=== PATIENT | female | born 1965 | race Caucasian/White ===

== ENCOUNTER 2018-07-18 19:23 | Inpatient (IN) | payer OTHER ==
[2018-07-18 20:54] LABS: WHITE BLOOD COUNT 10.7 10^3/ul (4.8-10.8)
[2018-07-18 20:54] LABS: ADD MAN DIFF? NO; BASOPHILS % 0.2 % (0.0-2.0); EOSINOPHILS # 0.1 10^3/ul (0.0-0.5); HEMATOCRIT 27.3 % (37.0-47.0); HEMOGLOBIN 8.7 g/dl (12.0-16.0); LYMPHOCYTES # 1.9 10^3/ul (0.8-2.9); LYMPHOCYTES % 18.1 % (15.0-51.0); MEAN CORPUSCULAR HEMOGLOBIN 27.8 pg (29.0-33.0); MEAN CORPUSCULAR HGB CONC 31.9 g/dl (32.0-37.0); MEAN CORPUSCULAR VOLUME 87.2 fl (82.0-101.0); MEAN PLATELET VOLUME 10.6 fl (7.4-10.4); MONOCYTE # 1.3 10^3/ul (0.3-0.9); MONOCYTES % 11.7 % (0.0-11.0); NEUTROPHIL # 7.3 10^3/ul (1.6-7.5); NEUTROPHILS % 68.6 % (39.0-77.0); PLATELET COUNT 247 10^3/UL (140-415); RED BLOOD COUNT 3.13 10^6/ul (4.20-5.40); RED CELL DISTRIBUTION WIDTH 13.2 % (11.5-14.5)
[2018-07-18 21:00] LABS: ADD UMIC YES; UR ASCORBIC ACID NEGATIVE (NEGATIVE); UR BILIRUBIN (Dip) NEGATIVE (NEGATIVE); UR BLOOD (Dip) NEGATIVE (NEGATIVE); UR CLARITY CLEAR (CLEAR); UR COLOR YELLOW (YELLOW); UR GLUCOSE (Dip) 3+ mg/dL (NEGATIVE); UR KETONES (Dip) NEGATIVE (NEGATIVE); UR LEUKOCYTE ESTERASE (Dip) 2+ Leu/ul (NEGATIVE); UR NITRITE (Dip) NEGATIVE (NEGATIVE); UR RBC 4 /HPF (0-5); UR SPECIFIC GRAVITY (Dip) 1.008 (1.003-1.030); UR TOTAL PROTEIN (Dip) 3+ mg/dl (NEGATIVE); UR UROBILINOGEN (Dip) NEGATIVE (NEGATIVE); UR WBC 67 /HPF (0-5)
[2018-07-18] MEDS: SOD CHLORIDE 0.9% 1,000 ML IV (21:05)
[2018-07-18] MEDS: KETOROLAC 15 MG INJ IV (21:05)
[2018-07-18] MEDS: ONDANSETRON 4 MG INJ IV (21:05)
[2018-07-18 21:07] LABS: ALANINE AMINOTRANSFERASE 21 IU/L (13-69); ALBUMIN 3.4 g/dl (3.3-4.9); ALBUMIN/GLOBULIN RATIO 0.91; ALKALINE PHOSPHATASE 116 IU/L (42-121); ANION GAP 6 (5-13); ASPARTATE AMINO TRANSFERASE 24 IU/L (15-46); BILIRUBIN,INDIRECT 0.5 mg/dl (0-1.1); BILIRUBIN,TOTAL 0.5 mg/dl (0.2-1.3); BLOOD UREA NITROGEN 35 mg/dl (7-20); CALCIUM 8.2 mg/dl (8.4-10.2); CARBON DIOXIDE 22 mmol/L (21-31); CHLORIDE 103 mmol/L (97-110); CREATININE 2.57 mg/dl (0.44-1.00); Estimated GFR 19 mL/min (>60); GLUCOSE 360 mg/dl (70-220); LIPASE 59 U/L (23-300); POTASSIUM 4.7 mmol/L (3.5-5.1); SODIUM 131 mmol/L (135-144); TOTAL PROTEIN 7.1 g/dl (6.1-8.1)
[2018-07-18 21:19] LABS: B-TYPE NATRIURETIC PEPTIDE 5910 PG/ML (0-125); TROPONIN-I 0.015 ng/ml (0.000-0.120)
[2018-07-18] MEDS: CEFTRIAXONE 1 GM/50 ML (PMX) 50 ML IVPB (21:37)
[2018-07-18] MEDS ORDERED: NACL 0.9% 3 ML SYG IV (22:00)
[2018-07-18] MEDS ORDERED: ALBUTEROL/IPRATROPIUM (NEB) 3 ML AMP HHN (22:00)
[2018-07-18] MEDS: GABAPENTIN 300 MG CAP PO (23:42)
[2018-07-18] MEDS: ATORVASTATIN 20 MG TAB PO (23:42)
[2018-07-18] MEDS: HYDROCODONE/APAP (10/325) TAB PO (23:42)
[2018-07-18] MEDS ORDERED: GLUCOSE GEL 15 GRAM TUBE BUCCAL (23:45)
[2018-07-18] MEDS ORDERED: GLUCAGON 1 MG INJ IM (23:45)
[2018-07-18] MEDS ORDERED: DEXTROSE 50% 50 ML SYRINGE IV ×2 (23:45)
[2018-07-18] MEDS ORDERED: GLUCOSE GEL 15 GRAM TUBE PO ×2 (23:45)
[2018-07-19] MEDS: AZITHROMYCIN 500MG/NS (PMX) 250 ML IVPB (00:57)
[2018-07-19] MEDS: INSULIN GLARGINE [LANtus] 3 ML PEN SC ×3 (00:57→21:00)
[2018-07-19] MEDS: ACCU-CHEK XX (02:00)
[2018-07-19] MEDS: ONDANSETRON 4 MG INJ IV ×2 (04:36→12:49)
[2018-07-19 06:52] LABS: ADD MAN DIFF? NO
[2018-07-19 07:00] LABS: WHITE BLOOD COUNT 7.4 10^3/ul (4.8-10.8)
[2018-07-19 07:00] LABS: BASOPHILS % 0.4 % (0.0-2.0); EOSINOPHILS # 0.1 10^3/ul (0.0-0.5); EOSINOPHILS % 1.4 % (0.0-7.0); HEMATOCRIT 22.6 % (37.0-47.0); HEMOGLOBIN 7.1 g/dl (12.0-16.0); LYMPHOCYTES # 1.4 10^3/ul (0.8-2.9); LYMPHOCYTES % 18.3 % (15.0-51.0); MEAN CORPUSCULAR HEMOGLOBIN 27.4 pg (29.0-33.0); MEAN CORPUSCULAR HGB CONC 31.4 g/dl (32.0-37.0); MEAN CORPUSCULAR VOLUME 87.3 fl (82.0-101.0); MEAN PLATELET VOLUME 10.6 fl (7.4-10.4); MONOCYTE # 0.8 10^3/ul (0.3-0.9); MONOCYTES % 11.1 % (0.0-11.0); NEUTROPHILS % 68.3 % (39.0-77.0); PLATELET COUNT 204 10^3/UL (140-415); RED BLOOD COUNT 2.59 10^6/ul (4.20-5.40); RED CELL DISTRIBUTION WIDTH 13.2 % (11.5-14.5)
[2018-07-19 07:18] LABS: HEMOGLOBIN A1C 8.2 % (0-5.9)
[2018-07-19 07:23] LABS: ALANINE AMINOTRANSFERASE 22 IU/L (13-69); ALBUMIN 2.5 g/dl (3.3-4.9); ALBUMIN/GLOBULIN RATIO 0.78; ALKALINE PHOSPHATASE 78 IU/L (42-121); ANION GAP 2 (5-13); ASPARTATE AMINO TRANSFERASE 17 IU/L (15-46); BILIRUBIN,INDIRECT 0.3 mg/dl (0-1.1); BILIRUBIN,TOTAL 0.3 mg/dl (0.2-1.3); BLOOD UREA NITROGEN 36 mg/dl (7-20); CALCIUM 7.6 mg/dl (8.4-10.2); CARBON DIOXIDE 22 mmol/L (21-31); CHLORIDE 108 mmol/L (97-110); CHOL/HDL RATIO 2.8 RATIO; CHOLESTEROL 102 mg/dl (100-200); CREATININE 2.53 mg/dl (0.44-1.00); Estimated GFR 20 mL/min (>60); GLUCOSE 218 mg/dl (70-220); HDL CHOLESTEROL 36 mg/dl (37-92); LDL CHOLESTEROL,CALCULATED 47 mg/dl; MAGNESIUM 2.1 mg/dl (1.7-2.5); POTASSIUM 4.9 mmol/L (3.5-5.1); SODIUM 132 mmol/L (135-144); TOTAL PROTEIN 5.7 g/dl (6.1-8.1); TRIGLYCERIDES 95 mg/dl (0-149)
[2018-07-19] MEDS: SENNA TAB PO (08:31)
[2018-07-19] MEDS: INSULIN ASPART [NOVOLOG] 3 ML PEN SC ×6 (08:37→21:11)
[2018-07-19] MEDS: HEPARIN 5,000 UNIT/1 ML VIAL SC (08:50)
[2018-07-19 08:58] LABS: IRON < 10 ug/dl (35-150)
[2018-07-19 09:02] LABS: TOTAL IRON BINDING CAPACITY 212 ug/dl (241-421)
[2018-07-19] MEDS: HYDROCODONE/APAP (10/325) TAB PO (10:00)
[2018-07-19 10:10] LABS: FERRITIN 45.4 ng/ml (11.1-264.0)
[2018-07-19 14:04] LABS: HEMATOCRIT 23.6 % (37.0-47.0); HEMOGLOBIN 7.6 g/dl (12.0-16.0)
[2018-07-19 16:05] LABS: HAAIG REFLEX REFLEX FILED
[2018-07-19] MEDS: SOD FERRIC GLUC COMPLX 125 MG in SOD CHLORIDE 0.9% 100 ML IVPB (16:13)
[2018-07-19] MEDS: AZITHROMYCIN 250 MG in SOD CHLORIDE 0.9% 250 ML IVPB (16:31)
[2018-07-19] MEDS: METOPROLOL 25 MG TAB PO (16:31)
[2018-07-19] MEDS: ACETAMINOPHEN 325 MG TAB PO (16:31)
[2018-07-19 16:48] LABS: HEPATITIS B SURFACE ANTIGEN NEGATIVE (NEGATIVE)
[2018-07-19 17:06] LABS: HEPATITIS B CORE ANTIBODY NEGATIVE (NEGATIVE); HEPATITIS C VIRAL ANTIBODY REACTIVE (NEGATIVE)
[2018-07-19] MEDS: PANTOPRAZOLE 40 MG INJ IV (17:49)
[2018-07-19] MEDS: METOCLOPRAMIDE 10 MG INJ IV (17:51)
[2018-07-19 18:40] LABS: ADD UMIC YES; UR ASCORBIC ACID NEGATIVE (NEGATIVE); UR BACTERIA FEW /HPF (NONE SEEN); UR BILIRUBIN (Dip) NEGATIVE (NEGATIVE); UR BLOOD (Dip) NEGATIVE (NEGATIVE); UR CLARITY SLIGHTLY CLOUDY (CLEAR); UR COLOR YELLOW (YELLOW); UR GLUCOSE (Dip) 1+ mg/dL (NEGATIVE); UR KETONES (Dip) NEGATIVE (NEGATIVE); UR LEUKOCYTE ESTERASE (Dip) 3+ Leu/ul (NEGATIVE); UR NITRITE (Dip) NEGATIVE (NEGATIVE); UR RBC 1 /HPF (0-5); UR SPECIFIC GRAVITY (Dip) 1.009 (1.003-1.030); UR SQUAMOUS EPITHELIAL CELL MANY /HPF (FEW); UR TOTAL PROTEIN (Dip) 2+ mg/dl (NEGATIVE); UR UROBILINOGEN (Dip) NEGATIVE (NEGATIVE); UR WBC 41 /HPF (0-5)
[2018-07-19 18:50] LABS: POTASSIUM,URINE RANDOM 17.4 mmol/L (25-125)
[2018-07-19 18:50] LABS: SODIUM,URINE RANDOM 21 mmol/L (30-90)
[2018-07-19 18:55] LABS: CREATININE,URINE RANDOM 48.68 mg/dl (20-320)
[2018-07-19 18:55] LABS: SODIUM,URINE RANDOM 21 mmol/L (30-90)
[2018-07-19] MEDS: FERROUS SULFATE (EC) 325 MG TAB PO (20:51)
[2018-07-19] MEDS: ATORVASTATIN 20 MG TAB PO (20:51)
[2018-07-19] MEDS: GABAPENTIN 100 MG CAP PO (20:52)
[2018-07-19] MEDS ORDERED: GABAPENTIN 300 MG CAP PO (21:00)
[2018-07-19] MEDS: ERYTHROMYCIN BASE (DR) 250 MG CAP PO (22:46)
[2018-07-19] MEDS: DOCUSATE SODIUM 100 MG CAP PO (22:46)
[2018-07-19] MEDS: POLYETHYLENE GLYCOL 17 GM PACKET PO (22:46)
[2018-07-19] MEDS: CEFTRIAXONE 1 GM/50 ML (PMX) 50 ML IVPB (22:46)
[2018-07-20] MEDS: METOCLOPRAMIDE 10 MG INJ IV ×3 (00:20→12:26)
[2018-07-20] MEDS: INSULIN GLARGINE [LANTus] (100 UNITS/ML) SYG SC ×2 (00:33→20:54)
[2018-07-20] MEDS: ACCU-CHEK XX (02:00)
[2018-07-20] MEDS: PANTOPRAZOLE 40 MG INJ IV ×2 (05:53→17:36)
[2018-07-20] MEDS: ERYTHROMYCIN BASE (DR) 250 MG CAP PO ×3 (05:53→22:25)
[2018-07-20 06:25] LABS: ADD MAN DIFF? NO
[2018-07-20 06:28] LABS: BASOPHILS % 0.3 % (0.0-2.0); EOSINOPHILS # 0.1 10^3/ul (0.0-0.5); EOSINOPHILS % 1.8 % (0.0-7.0); HEMATOCRIT 22.9 % (37.0-47.0); HEMOGLOBIN 7.3 g/dl (12.0-16.0); LYMPHOCYTES # 1.7 10^3/ul (0.8-2.9); LYMPHOCYTES % 24.1 % (15.0-51.0); MEAN CORPUSCULAR HEMOGLOBIN 27.7 pg (29.0-33.0); MEAN CORPUSCULAR HGB CONC 31.9 g/dl (32.0-37.0); MEAN CORPUSCULAR VOLUME 86.7 fl (82.0-101.0); MEAN PLATELET VOLUME 10.6 fl (7.4-10.4); MONOCYTE # 0.7 10^3/ul (0.3-0.9); MONOCYTES % 9.8 % (0.0-11.0); NEUTROPHIL # 4.6 10^3/ul (1.6-7.5); NEUTROPHILS % 63.7 % (39.0-77.0); PLATELET COUNT 220 10^3/UL (140-415); RED BLOOD COUNT 2.64 10^6/ul (4.20-5.40)
[2018-07-20 06:28] LABS: WHITE BLOOD COUNT 7.2 10^3/ul (4.8-10.8)
[2018-07-20 06:55] LABS: ANION GAP 4 (5-13); BLOOD UREA NITROGEN 33 mg/dl (7-20); CALCIUM 7.8 mg/dl (8.4-10.2); CARBON DIOXIDE 22 mmol/L (21-31); CHLORIDE 109 mmol/L (97-110); CREATININE 2.56 mg/dl (0.44-1.00); Estimated GFR 20 mL/min (>60); GLUCOSE 188 mg/dl (70-220); POTASSIUM 4.3 mmol/L (3.5-5.1); SODIUM 135 mmol/L (135-144)
[2018-07-20 06:56] LABS: MAGNESIUM 2.2 mg/dl (1.7-2.5)
[2018-07-20 06:56] LABS: PHOSPHORUS 4.7 mg/dl (2.5-4.9)
[2018-07-20] MEDS: INSULIN ASPART [NOVOLOG] 3 ML PEN SC ×7 (08:18→20:51)
[2018-07-20] MEDS: DOCUSATE SODIUM 100 MG CAP PO ×2 (08:20→20:50)
[2018-07-20] MEDS: METOPROLOL 25 MG TAB PO (08:20)
[2018-07-20] MEDS: POLYETHYLENE GLYCOL 17 GM PACKET PO (08:20)
[2018-07-20] MEDS: GABAPENTIN 100 MG CAP PO ×3 (08:20→20:50)
[2018-07-20] MEDS: FERROUS SULFATE (EC) 325 MG TAB PO ×2 (08:20→20:50)
[2018-07-20] MEDS: SENNA TAB PO (08:20)
[2018-07-20] MEDS: HYDROCODONE/APAP (10/325) TAB PO (15:48)
[2018-07-20] MEDS: AZITHROMYCIN 250 MG in SOD CHLORIDE 0.9% 250 ML IVPB (17:36)
[2018-07-20] MEDS: ONDANSETRON 4 MG INJ IV (18:50)
[2018-07-20 19:07] LABS: OCCULT BLOOD STOOL NEGATIVE (NEGATIVE)
[2018-07-20] MEDS: ATORVASTATIN 20 MG TAB PO (20:50)
[2018-07-20] MEDS: CEFTRIAXONE 1 GM/50 ML (PMX) 50 ML IVPB (20:51)
[2018-07-21] MEDS: ACCU-CHEK XX (02:00)
[2018-07-21] MEDS: PANTOPRAZOLE 40 MG INJ IV ×2 (05:58→17:36)
[2018-07-21] MEDS: ERYTHROMYCIN BASE (DR) 250 MG CAP PO ×2 (05:58→13:22)
[2018-07-21 06:47] LABS: ADD MAN DIFF? NO
[2018-07-21 06:51] LABS: BASOPHILS % 0.3 % (0.0-2.0); EOSINOPHILS # 0.2 10^3/ul (0.0-0.5); EOSINOPHILS % 2.5 % (0.0-7.0); HEMOGLOBIN 7.4 g/dl (12.0-16.0); MEAN CORPUSCULAR HGB CONC 32.2 g/dl (32.0-37.0); MEAN CORPUSCULAR VOLUME 87.1 fl (82.0-101.0); MONOCYTE # 0.6 10^3/ul (0.3-0.9); MONOCYTES % 7.8 % (0.0-11.0); NEUTROPHIL # 4.4 10^3/ul (1.6-7.5); NEUTROPHILS % 61.1 % (39.0-77.0); PLATELET COUNT 241 10^3/UL (140-415); RED BLOOD COUNT 2.64 10^6/ul (4.20-5.40)
[2018-07-21 06:51] LABS: WHITE BLOOD COUNT 7.2 10^3/ul (4.8-10.8)
[2018-07-21 07:21] LABS: ANION GAP 4 (5-13); BLOOD UREA NITROGEN 33 mg/dl (7-20); CALCIUM 8.1 mg/dl (8.4-10.2); CARBON DIOXIDE 21 mmol/L (21-31); CHLORIDE 112 mmol/L (97-110); CREATININE 2.38 mg/dl (0.44-1.00); Estimated GFR 21 mL/min (>60); GLUCOSE 131 mg/dl (70-220); POTASSIUM 4.3 mmol/L (3.5-5.1); SODIUM 137 mmol/L (135-144)
[2018-07-21] MEDS: INSULIN ASPART [NOVOLOG] 3 ML PEN SC ×7 (07:55→20:57)
[2018-07-21] MEDS: FERROUS SULFATE (EC) 325 MG TAB PO ×2 (08:15→20:54)
[2018-07-21] MEDS: METOPROLOL 25 MG TAB PO (08:15)
[2018-07-21] MEDS: GABAPENTIN 100 MG CAP PO ×3 (08:15→20:54)
[2018-07-21] MEDS: POLYETHYLENE GLYCOL 17 GM PACKET PO (08:16)
[2018-07-21] MEDS: DOCUSATE SODIUM 100 MG CAP PO ×2 (08:16→20:54)
[2018-07-21] MEDS: SENNA TAB PO (08:16)
[2018-07-21 09:56] LABS: HAAIG REFLEX REFLEX FILED
[2018-07-21 11:57] LABS: HEPATITIS B SURFACE ANTIGEN NEGATIVE (NEGATIVE)
[2018-07-21 12:15] LABS: HEPATITIS B CORE ANTIBODY NEGATIVE (NEGATIVE)
[2018-07-21 12:24] LABS: HEPATITIS C VIRAL ANTIBODY REACTIVE (NEGATIVE)
[2018-07-21 13:10] LABS: COMPLEMENT C3 119 mg/dl (88-165); COMPLEMENT C4 35 mg/dl (14-44)
[2018-07-21] MEDS ORDERED: LIDOCAINE 2% (SDV) 5 ML INJ (15:42)
[2018-07-21] MEDS ORDERED: PROPOFOL 40 ML (15:42)
[2018-07-21 16:12] LABS: RHEUMATOID FACTOR NEGATIVE (NEGATIVE)
[2018-07-21 17:31] LABS: CREATININE, RANDOM URINE 50 mg/dL (20-275); MICROALBUMIN 163.1 mg/dL; MICROALBUMIN/CREATININE RATIO 3262 (<30)
[2018-07-21] MEDS: AZITHROMYCIN 250 MG in SOD CHLORIDE 0.9% 250 ML IVPB (17:58)
[2018-07-21] MEDS: ATORVASTATIN 20 MG TAB PO (20:54)
[2018-07-21] MEDS: INSULIN GLARGINE [LANTus] (100 UNITS/ML) SYG SC (20:57)
[2018-07-21] MEDS: hydrALAzine 20 MG INJ IV (22:32)
[2018-07-21] MEDS: HYDROCODONE/APAP (10/325) TAB PO (22:32)
[2018-07-21] MEDS: CEFTRIAXONE 1 GM/50 ML (PMX) 50 ML IVPB (22:42)
[2018-07-22] MEDS: ERYTHROMYCIN BASE (DR) 250 MG CAP PO ×3 (00:30→12:56)
[2018-07-22] MEDS: ACCU-CHEK XX (02:00)
[2018-07-22] MEDS: PANTOPRAZOLE 40 MG INJ IV (05:54)
[2018-07-22 07:16] LABS: ADD MAN DIFF? NO
[2018-07-22 07:17] LABS: WHITE BLOOD COUNT 8.2 10^3/ul (4.8-10.8)
[2018-07-22 07:17] LABS: BASOPHIL # 0.1 10^3/ul (0.0-0.1); BASOPHILS % 0.6 % (0.0-2.0); EOSINOPHILS # 0.2 10^3/ul (0.0-0.5); EOSINOPHILS % 2.8 % (0.0-7.0); HEMATOCRIT 27.2 % (37.0-47.0); HEMOGLOBIN 8.4 g/dl (12.0-16.0); LYMPHOCYTES # 2.1 10^3/ul (0.8-2.9); LYMPHOCYTES % 25.4 % (15.0-51.0); MEAN CORPUSCULAR HGB CONC 30.9 g/dl (32.0-37.0); MEAN CORPUSCULAR VOLUME 87.5 fl (82.0-101.0); MEAN PLATELET VOLUME 11.8 fl (7.4-10.4); MONOCYTE # 0.7 10^3/ul (0.3-0.9); MONOCYTES % 7.9 % (0.0-11.0); NEUTROPHIL # 5.2 10^3/ul (1.6-7.5); NEUTROPHILS % 63.1 % (39.0-77.0); PLATELET COUNT 261 10^3/UL (140-415); RED BLOOD COUNT 3.11 10^6/ul (4.20-5.40); RED CELL DISTRIBUTION WIDTH 13.3 % (11.5-14.5)
[2018-07-22 07:19] LABS: POSITIVE DIFF @See below
[2018-07-22 07:49] LABS: ANION GAP 6 (5-13); BLOOD UREA NITROGEN 36 mg/dl (7-20); CALCIUM 8.2 mg/dl (8.4-10.2); CARBON DIOXIDE 21 mmol/L (21-31); CHLORIDE 108 mmol/L (97-110); Estimated GFR 23 mL/min (>60); GLUCOSE 188 mg/dl (70-220); MAGNESIUM 2.2 mg/dl (1.7-2.5); PHOSPHORUS 4.9 mg/dl (2.5-4.9); SODIUM 135 mmol/L (135-144)
[2018-07-22] MEDS: INSULIN ASPART [NOVOLOG] 3 ML PEN SC ×4 (08:09→12:50)
[2018-07-22] MEDS: ONDANSETRON 4 MG INJ IV (08:11)
[2018-07-22] MEDS: GABAPENTIN 100 MG CAP PO ×2 (08:21→12:56)
[2018-07-22] MEDS: DOCUSATE SODIUM 100 MG CAP PO (08:21)
[2018-07-22] MEDS: SENNA TAB PO (08:21)
[2018-07-22] MEDS: FERROUS SULFATE (EC) 325 MG TAB PO (08:21)
[2018-07-22] MEDS: POLYETHYLENE GLYCOL 17 GM PACKET PO (08:22)
[2018-07-22] MEDS: METOPROLOL 25 MG TAB PO (08:24)
[2018-07-22 13:41] LABS: MYELOPEROXIDASE ANTIBODY <1.0 AI; PROTEINASE-3 ANTIBODY <1.0 AI
[2018-07-22 14:32] LABS: ANCA SCREEN NEGATIVE (NEGATIVE)
[2018-07-22 20:02] LABS: ANA SCREEN POSITIVE (NEGATIVE)
[2018-07-23 18:06] LABS: ANTI-DNA (DOUBLE STRANDED) <95 U/mL (< 301)
[2018-07-23 19:37] LABS: ANA PATTERN NUCLEOLAR
== END 2018-07-22 15:00 | disposition home or self-care (01) | DRG 193 ==
LOC: E/R 19:23 → PP2 07-21 22:13 → TEL 21:42
PROC: 0DB48ZX Excision of Esophagogastric Junction, Via Natural or Artificial Opening Endoscopic, Diagnostic (ICD-10-PCS; principal; 2018-07-21 15:00)
PROC: 0DB68ZX Excision of Stomach, Via Natural or Artificial Opening Endoscopic, Diagnostic (ICD-10-PCS; 2018-07-21 15:00)
DX: J18.9 Pneumonia, unspecified organism (principal); Q39.4 Esophageal web; N39.0 Urinary tract infection, site not specified; N17.9 Acute kidney failure, unspecified; E87.1 Hypo-osmolality and hyponatremia; K92.1 Melena; E11.65 Type 2 diabetes mellitus with hyperglycemia; K29.70 Gastritis, unspecified, without bleeding; K31.84 Gastroparesis; B19.20 Unspecified viral hepatitis C without hepatic coma; I12.9 Hypertensive chronic kidney disease with stage 1 through stage 4 chronic kidney disease, or unspecified chronic kidney disease; N18.9 Chronic kidney disease, unspecified; D64.9 Anemia, unspecified; I27.20 Pulmonary hypertension, unspecified; K22.70 Barrett's esophagus without dysplasia; N30.80 Other cystitis without hematuria; K27.9 Peptic ulcer, site unspecified, unspecified as acute or chronic, without hemorrhage or perforation
CPT/HCPCS: 36415; 71045; 74176; 76775; 80048; 80053; 80061; 81001; 81003; 82043; 82270; 82436; 82595; 82728; 82962; 83036; 83540; 83605; 83690; 83735; 83880; 84100; 84133; 84155; 84300; 84484; 85014; 85018; 85025; 86021; 86038; 86160; 86226; 86430; 86704; 86709; 86803; 87086; 87340; 87400; 88305; 88312; 88313; 93005; 93306; 96374; 96375; 97161; 99285-25